=== PATIENT | male | born 1940 | race Caucasian/White ===

== ENCOUNTER 2020-01-22 08:54 | Day surgery (SDC) | payer MEDICARE, BC ==
[~2020-01-22 08:54] MED LIST: Lactated Ringers 1,000 ML IV SCH; Lidocaine 1%/Sod Bicarbonate in NS 8.4% 1 ML Syringe IDERM PRN; Sodium Chloride 0.9% 10 ML Syringe FLUSH PRN
[2020-01-22] MEDS ORDERED: Lidocaine 1% with EPINEPHrine 1:100,000 20 ML MDV ONE (09:19)
[2020-01-22] MEDS ORDERED: Bupivacaine 0.5%/EPINEPHrine 1:200,000 50 ML MDV ONE (09:19)
[2020-01-22] MEDS ORDERED: Famotidine 20 MG/2 ML SDV IVPUSH ONE (09:30)
[2020-01-22] MEDS ORDERED: Propofol 200 MG/20 ML SDV ONE (09:31)
[2020-01-22] MEDS ORDERED: Lidocaine 1% 4 ML ONE (09:31)
[2020-01-22] MEDS ORDERED: fentaNYL 100 MCG/2 ML SDV ONE (09:31)
--- NOTE | 2020-01-22 10:01 | PCM.PREANE ---
Preanesthetic Assessment - Procedure Proposed Procedure: Inguinal hernia repair - Anesthesia/Transfusion/Family Hx Anesthesia History: Prior Anesthesia Without Reaction Family History of Anesthesia Reaction: No - Review of Systems General: No Symptoms Pulmonary: No Symptoms Cardiovascular: No Symptoms Gastrointestinal: No Symptoms Neurological: No Symptoms, Other (Recent stroke-like symptoms without evidence of stroke on radiology. Patient had CEA last month for 80+% occlusion.) Other: Reports: None - Physical Assessment NPO Status Date: 01/22/20 (greater than 8 hours) ASA Class: 2 Mental Status: Alert & Oriented x3 Airway Class: Mallampati = 2 Dentition: Reports: Normal Dentition ROM/Head Extension: Full Lungs: Clear to Auscultation, Normal Respiratory Effort Cardiovascular: Regular Rate, Regular Rhythm - Allergies Allergies/Adverse Reactions: Allergies Allergy/AdvReac Type Severity Reaction Status Date / Time No Known Allergies Allergy Verified 06/06/18 10:47 - Anesthesia Plan Pre-Op Medication Ordered: Antacids - Acknowledgements Anesthesia Type Planned: MAC Pt an Appropriate Candidate for the Planned Anesthesia: Yes Alternatives and Risks of Anesthesia Discussed w Pt/Guardian: Yes Pt/Guardian Understands and Agrees with Anesthesia Plan: Yes PreAnesthesia Questionnaire Cardiovascular History: Reports: CT Neurological History: Reports: CVA - HOME MEDS Home Medications: Home Meds Aspirin [Aspirin EC] 0.5 tab PO DAILY 06/06/18 [History] Ondansetron [Zofran ODT] 4 mg PO Q6H PRN #28 tab.dis 06/06/18 [Rx] - CURRENT (IN HOUSE) MEDS Current Meds: Current Medications Lactated Ringer's (Ringers, Lactated) 1,000 mls @ 125 mls/hr IV ASDIRECTED PERLITA Stop: 01/22/20 23:00 Lidocaine/Sodium Bicarbonate (Buffered Lidocaine 1% In Ns 8.4%) 0.25 ml IDERM ONETIME PRN PRN Reason: Prior to IV Start Stop: 01/22/20 23:00 Sodium Chloride (Saline Flush) 10 ml FLUSH ASDIRECTED PRN PRN Reason: Keep Vein Open Stop: 01/22/20 23:00 Discontinued Medications Bupivacaine HCl/Epinephrine Bitart (Marcaine 0.5%/Epinephrine 1:200,000) Confirm Administered Dose 50 ml .ROUTE .STK-MED ONE Stop: 01/22/20 09:20 Famotidine (Pepcid) 20 mg IVPUSH ONETIME ONE Stop: 01/22/20 09:31 Last Admin: 01/22/20 09:52 Dose: 20 mg Documented by: Fentanyl (Sublimaze) Confirm Administered Dose 100 mcg .ROUTE .STK-MED ONE Stop: 01/22/20 09:32 Lidocaine HCl (Xylocaine-Mpf 1%) Confirm Administered Dose 4 mls @ as directed .ROUTE .STK-MED ONE Stop: 01/22/20 09:32 Lidocaine/Epinephrine (Xylocaine 1% With Epinephrine 1:100,000) Confirm Administered Dose 20 ml .ROUTE .STK-MED ONE Stop: 01/22/20 09:20 Propofol (Diprivan 20 Ml) Confirm Administered Dose 400 mg .ROUTE .STK-MED ONE Stop: 01/22/20 09:32
[2020-01-22] MEDS ORDERED: ceFAZolin 1 GM Vial ONE (10:49)
[2020-01-22] MEDS ORDERED: ePHEDrine Sulfate/0.9% NaCl/Pf 25 MG/5 ML SYRINGE IV ONE (11:02)
--- NOTE | 2020-01-22 11:50 | PCM.PRNOTE ---
- Free Text/Narrative Note: Date of Surgery/Procedure: 01/22/20 Operative Procedure(s): open right inguinal hernia repair with mesh Findings: indirect right inguinal hernia Pre Op Diagnosis: right inguinal hernia Post-Op Diagnosis: same Anesthesia Technique: MAC Primary Surgeon: Dr. Nicci Zuniga Anesthesia Provider: Jesús Lisa CRNA Pathology: none Fluid Replacement, Intraop: 1,200 Output, Urine Amount: 0 EBL in mLs: 2 Indication for the procedure: The patient is an 79-year-old gentleman who presented to the outpatient clinic complaining of a symptomatic right inguinal hernia. We discussed an open repair with mesh. We discussed risks of bleeding infection and chronic pain. The patient wished to proceed. His written consent was obtained. Description of the procedure: The patient was brought back to the operating room and placed in supine position on the operating table. He had successful induction of MAC anesthesia. A surgical timeout was performed. The patient had administration of Ancef 2 g IV per SCIP protocol. We began by performing an ilioinguinal nerve block on the right using mixed 1% lidocaine with epinephrine and 0.5% bupivacaine with epinephrine. We then marked an incision inferior to the inguinal ligament. This was opened using a scalpel and deepened down through the subcutaneous tissues using the Bovie device. Bibi's fascia was encountered and incised. We then dissected down to the level of the external oblique. This was sharply incised using a scalpel and then opened with the Metzenbaum scissors using the push cut method. The ilioinguinal nerve was sitting in the field on the top of the inguinal canal. This was carefully moved aside. The contents of the inguinal canal were then isolated and a Neal was passed a round the structures. We then evaluated the contents of the inguinal canal. The patient had a cord lipoma. This was dissected and removed. The hernia sac was then identified. The patient had an indirect hernia. The hernia sac was then isolated back to the level of the internal ring. It was ligated with a 3-0 Vicryl and cut. We then selected an appropriate size mesh. The mesh was sutured down to the pubic tubercle, the conjoined tendon, and the medial aspect of the inguinal canal using interrupted 0 Vicryl suture. The tails were then passed around the spermatic cord to create a new external ring. The tails were joined together using 0 Vicryl suture. The external oblique was then reapproximated using a running 2-0 Vicryl suture. Bibi's fascia was then reapproximated with interrupted 2-0 Vicryl suture. The skin was then reapproximated in 2 layers using a deep layer of 3-0 Vicryl sutures and overlying 4-0 Monocryl. Dermabond was then applied. All sponge and needle counts are correct. The patient was awakened from MAC anesthesia and transported to PACU in stable condition. Complications: none apparent Condition: Good Nicci Zuniga MD General Surgery
--- NOTE | 2020-01-22 11:50 | PCM.OPNOTE ---
- General Post-Op/Procedure Note Date of Surgery/Procedure: 01/22/20 Operative Procedure(s): open right inguinal hernia repair with mesh Findings: indirect right inguinal hernia Pre Op Diagnosis: right inguinal hernia Post-Op Diagnosis: same Anesthesia Technique: MAC Primary Surgeon: Nicci Zuniga Anesthesia Provider: Jesús Lisa Pathology: none Fluid Replacement, Intraop: 1,200 Output, Urine Amount: 0 EBL in mLs: 2 Complications: none apparent Condition: Good
--- NOTE | 2020-01-22 11:54 | PCM.POSTAN ---
POST ANESTHESIA ASSESSMENT - MENTAL STATUS Mental Status: Alert, Oriented - VITAL SIGNS Vital Signs: Last Vital Signs Temp 36.3 C 01/22/20 09:00 Pulse 65 01/22/20 09:00 Resp 16 01/22/20 09:00 BP 145/86 H 01/22/20 09:00 Pulse Ox 98 01/22/20 09:00 - RESPIRATORY Respiratory Status: Respiratory Rate WNL, Airway Patent, O2 Saturation Stable - CARDIOVASCULAR CV Status: Pulse Rate WNL, Blood Pressure Stable - GASTROINTESTINAL GI Status: No Symptoms - PAIN Pain Score: 0 - POST OP HYDRATION Hydration Status: Adequate & Stable - OBSERVATIONS Free Text/Narrative:: Routine MAC with transfer to PACU. VSS, SV, MARTIN, FAC, CTAB. No concerns at this time.
[2020-01-22] MEDS ORDERED: Morphine 4 MG/ML Syringe IVPUSH PRN (12:42)
[2020-01-22] MEDS ORDERED: Acetaminophen/HYDROcodone 325-5 MG Tab PO ONE (13:00)
[2020-01-22] MEDS ORDERED: Ondansetron 4 MG/2 ML SDV IVPUSH ONE (13:00)
== END 2020-01-22 13:34 | disposition home or self-care (01) ==
LOC: JD.SDS 08:54
PROVIDERS: ATTEND Surgery
DX: K40.90 Unilateral inguinal hernia, without obstruction or gangrene, not specified as recurrent (principal); D17.6 Benign lipomatous neoplasm of spermatic cord; K21.9 Gastro-esophageal reflux disease without esophagitis; Z79.899 Other long term (current) drug therapy; Z79.82 Long term (current) use of aspirin
CPT/HCPCS: 49505; A9270; C1781; J0171; J0690; J2001; J2405; J2704; J3010; J3490; J7120; 00830

== ENCOUNTER 2020-05-28 08:56 | Day surgery (SDC) | payer MEDICARE, BC ==
[~2020-05-28 08:56] MED LIST changes: -Lactated Ringers 1,000 ML IV SCH; -Lidocaine 1%/Sod Bicarbonate in NS 8.4% 1 ML Syringe IDERM PRN; +Phenylephrine 2.5% Ophth Soln 15 ML Bot EYELF SCH; +Phenylephrine 2.5% Ophth Soln 2 ML Bot EYELF SCH; +Pilocarpine 4% Ophth Soln 15 ML Bot EYELF SCH; -Sodium Chloride 0.9% 10 ML Syringe FLUSH PRN
[2020-05-28] MEDS: Polymyxin B/Trimethoprim 10 ML Bottle EYELF SCH ×3 (09:42→11:40)
[2020-05-28] MEDS: Brimonidine 0.2% Ophth Soln 5 ML Bottle EYELF SCH ×3 (09:49→11:40)
[2020-05-28] MEDS: Phenylephrine 2.5% Ophth Soln 15 ML Bot EYELF SCH ×6 (09:57→11:14)
[2020-05-28] MEDS: Tropicamide 1% Ophth Soln 15 ML Bottle EYELF SCH ×4 (10:04→10:53)
--- NOTE | 2020-05-28 10:21 | PCM.PREANE ---
Preanesthetic Assessment - Procedure Proposed Procedure: cataract extraction with IOL left eye - Anesthesia/Transfusion/Family Hx Anesthesia History: Prior Anesthesia Without Reaction Family History of Anesthesia Reaction: No Transfusion History: No Prior Transfusion(s) - Review of Systems General: No Symptoms Pulmonary: No Symptoms Cardiovascular: No Symptoms Gastrointestinal: No Symptoms Neurological: Weakness (due to CA treatment) Other: Reports: None - Physical Assessment NPO Status Date: 05/27/20 NPO Status Time: 00:00 Vital Signs: Last Vital Signs Temp 36.5 C 05/28/20 09:35 Pulse 68 05/28/20 09:35 Resp 16 05/28/20 09:35 BP 141/66 H 05/28/20 09:35 Pulse Ox 99 05/28/20 09:35 Height: 1.57 m Weight: 68.039 kg ASA Class: 2 Mental Status: Alert & Oriented x3 Airway Class: Mallampati = 1 Dentition: Reports: [place](s) Thyro-Mental Finger Breadths: 3 Mouth Opening Finger Breadths: 3 ROM/Head Extension: Full Lungs: Clear to Auscultation, Normal Respiratory Effort Cardiovascular: Regular Rate, Regular Rhythm - Allergies Allergies/Adverse Reactions: Allergies Allergy/AdvReac Type Severity Reaction Status Date / Time No Known Allergies Allergy Verified 05/27/20 09:57 - Anesthesia Plan Pre-Op Medication Ordered: None - Acknowledgements Anesthesia Type Planned: MAC Pt an Appropriate Candidate for the Planned Anesthesia: Yes Alternatives and Risks of Anesthesia Discussed w Pt/Guardian: Yes Pt/Guardian Understands and Agrees with Anesthesia Plan: Yes PreAnesthesia Questionnaire Cardiovascular History: Reports: [place] Gastrointestinal History: Reports: GERD Neurological History: Reports: CVA (1983) Oncologic (Cancer) History: Reports: Lymphoma (2019 treatment for lymphoma and skin CA) - HOME MEDS Home Medications: Home Meds Aspirin [Aspirin EC] 0.5 tab PO DAILY 06/06/18 [History] Docusate Sodium [Colace] 100 mg PO BID 20 Days #40 cap 01/22/20 [Rx] Ibuprofen 600 mg PO Q6HR PRN 20 Days #60 tablet 01/22/20 [Rx] atorvaSTATin Calcium [Lipitor] 40 mg PO DAILY 01/22/20 [History] Magnesium Oxide/Magnesium [Magnesium] 300 mg PO DAILY 05/27/20 [History] - CURRENT (IN HOUSE) MEDS Current Meds: Current Medications Brimonidine Tartrate (Alphagan 0.2% Ophth Soln) 0 ml EYELF ASDIRECTED PERLITA Stop: 05/28/20 18:00 Last Admin: 05/28/20 09:49 Dose: 1 drop Documented by: Cefuroxime Sodium (Zinacef) 0 mg EYELF ASDIRECTED PERLITA Stop: 05/28/20 18:00 Lidocaine HCl (Xylocaine-Mpf 1%) 0 ml INJECT ASDIRECTED PERLITA Stop: 05/28/20 18:00 Phenylephrine HCl (Kirk-Synephrine 2.5% Ophth Soln) 0 ml EYELF ASDIRECTED PERLITA Stop: 05/28/20 18:00 Last Admin: 05/28/20 10:11 Dose: 1 drop Documented by: Pilocarpine HCl (Pilocar 4% Ophth Soln) 0 ml EYELF ASDIRECTED PERLITA Stop: 05/28/20 18:00 Polymyxin/Trimethoprim Sulfate (Polytrim Ophth Soln) 0 ml EYELF ASDIRECTED PERLITA Stop: 05/28/20 18:00 Last Admin: 05/28/20 09:42 Dose: 1 drop Documented by: Tetracaine HCl (Tetracaine 0.5% Steri-Unit Wendy) 0 ml EYEBOTH ASDIRECTED [facility] Stop: 05/28/20 18:00 Tropicamide (Mydriacyl 1% Ophth Soln) 0 ml EYELF ASDIRECTED PERLITA Stop: 05/28/20 18:00 Last Admin: 05/28/20 10:04 Dose: 1 drop Documented by: Discontinued Medications Phenylephrine HCl (Kirk-Synephrine 2.5% Ophth Soln) 0 ml EYELF ASDIRECTED [facility] Stop: 05/28/20 18:00 Phenylephrine HCl (Kirk-Synephrine 2.5% Ophth Soln) 0 ml EYELF ASDIRECTED [facility]
[2020-05-28] MEDS: Tetracaine HCl/PF 0.5% 4 ML Bottle EYEBOTH SCH ×5 (10:57→11:22)
[2020-05-28] MEDS: Lidocaine 1% PF 2 ML SDV INJECT SCH ×2 (11:10→11:22)
[2020-05-28] MEDS: Cefuroxime 10 MG/ML SYRINGE EYELF SCH ×2 (11:11→11:39)
--- NOTE | 2020-05-28 11:42 | PCM48HPAN ---
Post Anesthesia Note - EVALUATION WITHIN 48HRS OF ANESTHETIC Vital Signs in Normal Range: Yes Patient Participated in Evaluation: Yes Respiratory Function Stable: Yes Airway Patent: Yes Cardiovascular Function Stable: Yes Hydration Status Stable: Yes Pain Control Satisfactory: Yes Nausea and Vomiting Control Satisfactory: Yes Mental Status Recovered: Yes Vital Signs: Last Vital Signs Temp 36.5 C 05/28/20 09:35 Pulse 68 05/28/20 09:35 Resp 16 05/28/20 09:35 BP 141/66 H 05/28/20 09:35 Pulse Ox 99 05/28/20 09:35
== END 2020-05-28 11:52 | disposition home or self-care (01) ==
LOC: JD.SDS 08:56
PROVIDERS: ATTEND Ophthalmology
DX: H25.813 Combined forms of age-related cataract, bilateral (principal); H02.834 Dermatochalasis of left upper eyelid; H02.831 Dermatochalasis of right upper eyelid; H57.813 Brow ptosis, bilateral; H16.103 Unspecified superficial keratitis, bilateral; H16.223 Keratoconjunctivitis sicca, not specified as Sjogren's, bilateral; H40.003 Preglaucoma, unspecified, bilateral; Z79.82 Long term (current) use of aspirin; Z86.73 Personal history of transient ischemic attack (TIA), and cerebral infarction without residual deficits
CPT/HCPCS: 66984; J0697; J2001; V2632

== ENCOUNTER 2020-06-25 07:16 | Day surgery (SDC) | payer MEDICARE, BC ==
[~2020-06-25 07:16] MED LIST changes: -Phenylephrine 2.5% Ophth Soln 15 ML Bot EYELF SCH; +Phenylephrine 2.5% Ophth Soln 15 ML Bot EYERT SCH; -Phenylephrine 2.5% Ophth Soln 2 ML Bot EYELF SCH; -Pilocarpine 4% Ophth Soln 15 ML Bot EYELF SCH
[2020-06-25] MEDS: Polymyxin B/Trimethoprim 10 ML Bottle EYERT SCH ×4 (07:21→08:56)
--- NOTE | 2020-06-25 07:24 | PCM.PREANE ---
Preanesthetic Assessment - Procedure Proposed Procedure: Cataract Extraction with IOL of right eye. - Anesthesia/Transfusion/Family Hx Anesthesia History: Prior Anesthesia Without Reaction Family History of Anesthesia Reaction: No Transfusion History: No Prior Transfusion(s) Intubation History: Unknown - Review of Systems General: No Symptoms Pulmonary: No Symptoms Cardiovascular: No Symptoms (Elevated cholesterol, [place] in 1984) Gastrointestinal: No Symptoms (GERD), Constipation Neurological: No Symptoms (CVA in 1984, left with memory deficits) Other: Reports: None (History of skin cancer), Depression - Physical Assessment NPO Status Date: 06/24/20 NPO Status Time: 20:00 Vital Signs: HR: 75 B/P: 148/82 Sat: 99% Resp: 16 Temp: 97.1 Height: 1.6 m Weight: 70.76 kg ASA Class: 2 Mental Status: Alert & Oriented x3 Airway Class: Mallampati = 2 Dentition: Reports: Normal Dentition, [place](s), [place] Thyro-Mental Finger Breadths: 3 Mouth Opening Finger Breadths: 3 ROM/Head Extension: Full Lungs: Clear to Auscultation, Normal Respiratory Effort Cardiovascular: Regular Rate, Regular Rhythm, No Murmurs - Allergies Allergies/Adverse Reactions: Allergies Allergy/AdvReac Type Severity Reaction Status Date / Time No Known Allergies Allergy Verified 06/24/20 12:26 - Anesthesia Plan Pre-Op Medication Ordered: None - Acknowledgements Anesthesia Type Planned: MAC Pt an Appropriate Candidate for the Planned Anesthesia: Yes Alternatives and Risks of Anesthesia Discussed w Pt/Guardian: Yes Pt/Guardian Understands and Agrees with Anesthesia Plan: Yes PreAnesthesia Questionnaire Cardiovascular History: Reports: [place] Gastrointestinal History: Reports: GERD Neurological History: Reports: CVA (1983) Oncologic (Cancer) History: Reports: Lymphoma (2019 treatment for lymphoma and skin CA) - HOME MEDS Home Medications: Home Meds Aspirin [Aspirin EC] 0.5 tab PO DAILY 06/06/18 [History] Docusate Sodium [Colace] 100 mg PO BID 20 Days #40 cap 01/22/20 [Rx] Ibuprofen 600 mg PO Q6HR PRN 20 Days #60 tablet 01/22/20 [Rx] atorvaSTATin Calcium [Lipitor] 40 mg PO DAILY 01/22/20 [History] Magnesium Oxide/Magnesium [Magnesium] 300 mg PO DAILY 05/27/20 [History] - CURRENT (IN HOUSE) MEDS Current Meds: Current Medications Brimonidine Tartrate (Alphagan 0.2% Ophth Soln) 0 ml EYERT ASDIRECTED PERLITA Stop: 06/25/20 23:00 Cefuroxime Sodium (Zinacef) 0 mg EYERT ASDIRECTED PERLITA Stop: 06/25/20 23:00 Lidocaine HCl (Xylocaine-Mpf 1%) 0 ml INJECT ASDIRECTED PERLITA Stop: 06/25/20 23:00 Phenylephrine HCl (Kirk-Synephrine 2.5% Ophth Soln) 0 ml EYERT ASDIRECTED PERLITA Stop: 06/25/20 23:00 Pilocarpine HCl (Pilocar 4% Ophth Soln) 0 ml EYERT ASDIRECTED PERLITA Stop: 06/25/20 23:00 Polymyxin/Trimethoprim Sulfate (Polytrim Ophth Soln) 0 ml EYERT ASDIRECTED PERLITA Stop: 06/25/20 23:00 Tetracaine HCl (Tetracaine 0.5% Steri-Unit Wendy) 0 ml EYEBOTH ASDIRECTED PERLITA Stop: 06/25/20 23:00 Tropicamide (Mydriacyl 1% Ophth Soln) 0 ml EYERT ASDIRECTED PERLITA Stop: 06/25/20 23:00 Discontinued Medications Phenylephrine HCl (Kirk-Synephrine 2.5% Ophth Soln) 0 ml EYERT ASDIRECTED PERLITA Stop: 06/25/20 23:00
[2020-06-25] MEDS: Brimonidine 0.2% Ophth Soln 5 ML Bottle EYERT SCH ×4 (07:26→08:56)
[2020-06-25] MEDS: Phenylephrine 2.5% Ophth Soln 15 ML Bot EYERT SCH ×6 (07:31→08:37)
[2020-06-25] MEDS: Tropicamide 1% Ophth Soln 15 ML Bottle EYERT SCH ×4 (07:36→08:16)
[2020-06-25] MEDS: Tetracaine HCl/PF 0.5% 4 ML Bottle EYEBOTH SCH ×5 (07:40→08:43)
[2020-06-25] MEDS: Cefuroxime 10 MG/ML SYRINGE EYERT SCH ×2 (07:40→08:55)
[2020-06-25] MEDS: Lidocaine 1% PF 2 ML SDV INJECT SCH ×2 (07:40→08:43)
[2020-06-25] MEDS: Pilocarpine 4% Ophth Soln 15 ML Bot EYERT SCH ×2 (07:41→08:56)
--- NOTE | 2020-06-25 08:57 | PCM48HPAN ---
Post Anesthesia Note - EVALUATION WITHIN 48HRS OF ANESTHETIC Vital Signs in Normal Range: Yes Patient Participated in Evaluation: Yes Respiratory Function Stable: Yes Airway Patent: Yes Cardiovascular Function Stable: Yes Hydration Status Stable: Yes Pain Control Satisfactory: Yes Nausea and Vomiting Control Satisfactory: Yes Mental Status Recovered: Yes Vital Signs: Last Vital Signs Temp 36.2 C 06/25/20 07:15 Pulse 75 06/25/20 07:15 Resp 16 06/25/20 07:15 BP 148/82 H 06/25/20 07:15 Pulse Ox 99 06/25/20 07:15
== END 2020-06-25 09:07 | disposition home or self-care (01) ==
LOC: JD.SDS 07:16
PROVIDERS: ATTEND Ophthalmology
DX: H25.811 Combined forms of age-related cataract, right eye (principal); H57.813 Brow ptosis, bilateral; H02.834 Dermatochalasis of left upper eyelid; H02.831 Dermatochalasis of right upper eyelid; H40.003 Preglaucoma, unspecified, bilateral; H16.103 Unspecified superficial keratitis, bilateral; H16.223 Keratoconjunctivitis sicca, not specified as Sjogren's, bilateral; I25.2 Old myocardial infarction; E78.00 Pure hypercholesterolemia, unspecified; Z85.828 Personal history of other malignant neoplasm of skin; Z79.82 Long term (current) use of aspirin; Z79.899 Other long term (current) drug therapy; Z96.1 Presence of intraocular lens; Z86.73 Personal history of transient ischemic attack (TIA), and cerebral infarction without residual deficits
CPT/HCPCS: 66984; J0697; V2632

== ENCOUNTER 2022-01-11 09:26 | Emergency (ER) | payer MEDICARE, BC ==
[2022-01-11] MEDS ORDERED: Ondansetron 4 MG/2 ML SDV IVPUSH ONE (10:16)
[2022-01-11] MEDS ORDERED: Sodium Chloride 0.9% 10 ML Syringe FLUSH PRN (10:16)
[2022-01-11] MEDS ORDERED: Sodium Chloride 0.9% 1,000 ML IV SCH (10:30)
[2022-01-11] MEDS ORDERED: Pantoprazole 40 MG Vial IVPUSH ONE (13:10)
[2022-01-11] MEDS ORDERED: Sodium Chloride 0.9% 250 ML ONE ×2 (14:34→16:47)
== END 2022-01-11 19:05 | disposition home or self-care (01) ==
LOC: JD.ED 09:26
DX: K29.01 Acute gastritis with bleeding (principal); D64.89 Other specified anemias; R42 Dizziness and giddiness; K21.9 Gastro-esophageal reflux disease without esophagitis; Z79.899 Other long term (current) drug therapy; Z79.82 Long term (current) use of aspirin; Z86.73 Personal history of transient ischemic attack (TIA), and cerebral infarction without residual deficits
CPT/HCPCS: 36415; 36430; 70450; 71045; 80053; 82607; 82746; 83540; 84466; 84484; 85025; 86850; 86900; 86901; 86922; 93005; 96361; 96374; 96375; 99284; A9270; C9113; J2405; J3490; J7030; J7050; P9016

== ENCOUNTER 2022-01-23 15:11 | Emergency (ER) | payer MEDICARE, BC ==
[2022-01-23] MEDS ORDERED: Sodium Chloride 0.9% 10 ML Syringe FLUSH PRN (16:39)
== END 2022-01-23 17:10 | disposition home or self-care (01) ==
LOC: JD.ED 15:11
DX: R11.0 Nausea (principal); I25.2 Old myocardial infarction; K21.9 Gastro-esophageal reflux disease without esophagitis; Z86.73 Personal history of transient ischemic attack (TIA), and cerebral infarction without residual deficits; Z79.82 Long term (current) use of aspirin; Z79.899 Other long term (current) drug therapy
CPT/HCPCS: 99282; 99283; J3490

== ENCOUNTER 2022-03-02 09:40 | Day surgery (SDC) | payer MEDICARE, BC ==
[~2022-03-02 09:40] MED LIST changes: +Lactated Ringers 1,000 ML IV SCH; +Lidocaine 1%/Sod Bicarbonate in NS 8.4% 1 ML Syringe IDERM PRN; -Phenylephrine 2.5% Ophth Soln 15 ML Bot EYERT SCH; +Sodium Chloride 0.9% 10 ML Syringe FLUSH PRN; +Sodium Chloride 0.9% 10 ML Syringe FLUSH SCH
[2022-03-02] MEDS ORDERED: Propofol 200 MG/20 ML SDV ONE ×2 (10:38→12:12)
[2022-03-02] MEDS ORDERED: Lidocaine 1% 4 ML ONE (10:38)
[2022-03-02] MEDS ORDERED: ePHEDrine 50 MG/ML SDV ONE (12:03)
== END 2022-03-02 14:06 | disposition home or self-care (01) ==
LOC: JD.SDS 09:40
PROVIDERS: ATTEND Surgery
DX: D12.5 Benign neoplasm of sigmoid colon (principal); D12.2 Benign neoplasm of ascending colon; D12.3 Benign neoplasm of transverse colon; K22.70 Barrett's esophagus without dysplasia; K57.30 Diverticulosis of large intestine without perforation or abscess without bleeding; K44.9 Diaphragmatic hernia without obstruction or gangrene; K64.8 Other hemorrhoids; K29.70 Gastritis, unspecified, without bleeding; I25.10 Atherosclerotic heart disease of native coronary artery without angina pectoris; C85.13 Unspecified B-cell lymphoma, intra-abdominal lymph nodes; I21.9 Acute myocardial infarction, unspecified; K21.9 Gastro-esophageal reflux disease without esophagitis; I35.0 Nonrheumatic aortic (valve) stenosis; I25.2 Old myocardial infarction; Z98.890 Other specified postprocedural states; Z79.899 Other long term (current) drug therapy
CPT/HCPCS: 43239; 45380; 45381; 45385; J1642; J2704; J7120; 00813